=== PATIENT | female | born 1990 | race Caucasian/White ===

== ENCOUNTER 2017-07-11 19:17 | Emergency (ER) | payer MEDICAID ==
[~2017-07-11] VITALS: Ht 165.1 cm; Wt 66.0 kg
[2017-07-11] MEDS ORDERED: IBUPROFEN 600MG TABLET PO ONE (23:15)
[2017-07-11 23:21] VITALS: BP 139/63
== END 2017-07-11 23:22 | disposition home or self-care (01) ==
LOC: ER 20:13
DX: S10.91XA Abrasion of unspecified part of neck, initial encounter (principal); Y08.89XA Assault by other specified means, initial encounter; Y93.89 Activity, other specified; Y92.028 Other place in mobile home as the place of occurrence of the external cause
CPT/HCPCS: 72040; 81025; 99284